=== PATIENT | male | born 1960 | race Two or more races ===

== ENCOUNTER → 2017-04-12 | Outpatient (CLI) | payer OTHER | END | disposition home or self-care (01) | LOC: HKI 13:54 | DX: M17.11 Unilateral primary osteoarthritis, right knee (principal) | CPT/HCPCS: Z7500 ==

== ENCOUNTER 2017-09-21 07:23 | Day surgery (SDC) | payer OTHER ==
[~2017-09-21 07:23] MED LIST: CEFAZOLIN 1 GM INJ; CEFAZOLIN 2 GM/50 ML (PMX) 50 ML IVPB; SOD CHLORIDE 0.9% 1,000 ML IV
[2017-09-21] MEDS ORDERED: PROPOFOL 20 ML (09:30)
[2017-09-21] MEDS ORDERED: MIDAZOLAM 1 MG/ML 2 ML INJ (09:30)
[2017-09-21] MEDS ORDERED: LIDOCAINE 1% (MDV) 20 ML INJ (09:31)
[2017-09-21] MEDS ORDERED: ROPIVACAINE 0.2% 20 ML VIAL (09:31)
[2017-09-21] MEDS ORDERED: ONDANSETRON 4 MG INJ (10:02)
[2017-09-21] MEDS ORDERED: DEXAMETHASONE 4 MG/ML 1 ML INJ (10:02)
[2017-09-21] MEDS: BUPIVACAINE 0.25% (MPF) 30 ML INJ (10:03)
[2017-09-21] MEDS: POLYMYXIN/BACITRACIN 1L IRRIG (10:03)
[2017-09-21] MEDS ORDERED: HYDROmorphONE 1 MG/5 ML IV SYRINGE IV (11:00)
[2017-09-21] MEDS: HYDROmorphONE 1 MG/5 ML IV SYRINGE IV (11:08)
[2017-09-21] MEDS: HYDROCODONE/APAP (5/325) TAB PO (11:47)
== END 2017-09-21 12:45 | disposition home or self-care (01) ==
LOC: SDS 07:23
DX: K40.30 Unilateral inguinal hernia, with obstruction, without gangrene, not specified as recurrent (principal); F17.200 Nicotine dependence, unspecified, uncomplicated
CPT/HCPCS: 49507

== ENCOUNTER 2017-09-22 21:06 | Emergency (ER) | payer OTHER ==
[2017-09-23] MEDS: HYDROCODONE/APAP (10/325) TAB PO (00:30)
== END 2017-09-23 02:30 | disposition home or self-care (01) ==
LOC: FTE 21:06
DX: L76.82 Other postprocedural complications of skin and subcutaneous tissue (principal); R40.2412 Glasgow coma scale score 13-15, at arrival to emergency department
CPT/HCPCS: 76536; 99284-25